=== PATIENT | female | born 1995 | race Caucasian/White ===

== ENCOUNTER 2025-09-29 19:47 | Emergency (ER) | payer OTHER ==
[~2025-09-29] VITALS: Ht 167.6 cm; Wt 62.7 kg
[2025-09-29] MEDS: ONDANSETRON 4 MG RAPDIS TABLET PO ONE (21:07)
[2025-09-29 21:40] LABS: APPEARANCE,URINE TURBID (CLEAR); GLUCOSE, URINE (UA) NEGATIVE (NEGATIVE); LEUKOCYTE ESTERASE ,URINE LARGE (NEGATIVE); NITRATE,URINE POSITIVE (NEGATIVE); OCCULT BLOOD,URINE LARGE (NEGATIVE); SPECIFIC GRAVITIY, URINE 1.032 (1.003-1.030)
[2025-09-29 21:41] VITALS: BP 114/85; PULSE 97; RESP 20; TEMP 98.4; O2SAT 100
[2025-09-29 21:43] LABS: HCG,QUAL URINE NEGATIVE (NEGATIVE)
[2025-09-29 21:55] LABS: SULFOSALICYLIC ACID,URINE 4+ (Negative)
[2025-09-29 21:56] LABS: SQUAMOUS EPITHELIAL CELL,UR Moderate /LPF (None Seen)
[2025-09-29] MEDS: KETOROLAC TROMETHAMINE 30 MG/ML VIAL IVP ONE (22:16)
[2025-09-29] MEDS: SODIUM CHLORIDE 0.9% 1,000 ML IV ONE (22:17)
[2025-09-29 22:21] LABS: PLATELET COUNT (AUTO) 242 K/uL (150-450); RED BLOOD CELL COUNT(AUTO) 4.66 MIL/uL (4.00-5.20); RED CELL DISTRIBUTION WIDTH 13.2 % (11.5-14.5); WHITE BLOOD COUNT (AUTO) 12.5 K/uL (4.5-11.0)
[2025-09-29 22:25] LABS: CALCIUM, TOTAL 9.0 mg/dL (8.8-10.5); CREATININE 0.76 mg/dL (0.60-1.30); GLOMERULAR FILTR. RATE CALC > 60 mL/min (>60); GLUCOSE,RANDOM 125 mg/dL (70-110); SODIUM SERUM 139 mmol/L (136-145); UREA NITROGEN, BLOOD 10 mg/dL (7-18)
[2025-09-29 22:29] LABS: ASPARTATE AMINOTRANSFERASE 15 U/L (15-37); TOTAL PROTEIN, SERUM 7.6 g/dL (6.4-8.2)
[2025-09-29] MEDS: CefTRIAXone 1 GM/DEXTROSE 50 ML IV ONE (22:35)
[2025-09-29] MEDS ORDERED: ONDA-104 PO (23:11)
[2025-09-29] MEDS ORDERED: CEFP200T12 PO (23:11)
== END 2025-09-29 23:23 | disposition home or self-care (01) ==
LOC: EMS 19:47
DX: N12 Tubulo-interstitial nephritis, not specified as acute or chronic (principal); Z90.79 Acquired absence of other genital organ(s); Z87.59 Personal history of other complications of pregnancy, childbirth and the puerperium; Z88.5 Allergy status to narcotic agent
CPT/HCPCS: 99284; 96365; 96375; 80053; 81001; 85025; 87086; 36415; 84703; J1885; J0696; J7030; 81002; 87077